=== PATIENT | male | born 1980 | race Caucasian/White ===

== ENCOUNTER 2019-11-11 17:14 | Emergency (ER) | payer OTHER ==
[2019-11-11] MEDS ORDERED: Proparacaine 0.5% Ophth Soln 15 ML Bottle EYEBOTH STA (17:33)
--- NOTE | 2019-11-11 17:56 | EDM.PDOC ---
ED HPI GENERAL MEDICAL PROBLEM - General Chief Complaint: Eye Problems Stated Complaint: OBJECT IN RIGHT EYE Time Seen by Provider: 11/11/19 17:33 Source of Information: Reports: Patient, RN Notes Reviewed History Limitations: Reports: No Limitations - History of Present Illness INITIAL COMMENTS - FREE TEXT/NARRATIVE: 39-year-old gentleman presents emergency department today with complaint of foreign body in his right eye he was metal grinding a cait bolt yesterday Right Eye Pain Score (Numeric/FACES): 9 - Related Data Allergies Allergy/AdvReac Type Severity Reaction Status Date / Time No Known Allergies Allergy Verified 11/11/19 17:24 Home Meds: Home Meds lisinopriL [Lisinopril] 20 mg PO DAILY 11/11/19 [History] Past Medical History Cardiovascular History: Reports: Hypertension Musculoskeletal History: Reports: Fracture - Past Surgical History Cardiovascular Surgical History: Reports: Other (See Below) Other Cardiovascular Surgeries/Procedures: "open heart surgery as a baby." Social & Family History - Tobacco Use Smoking Status *Q: Never Smoker - Caffeine Use Caffeine Use: Reports: None - Recreational Drug Use Recreational Drug Use: No ED ROS GENERAL - Review of Systems Review Of Systems: See Below Constitutional: Reports: No Symptoms HEENT: Reports: Eye Pain ED EXAM GENERAL W FULL EYE - Physical Exam Exam: See Below Exam Limited By: No Limitations Eye Exam: Right Eye: Normal Inspection (Foreign body present), Bilateral Eye: EOMI, PERRL Visual Acuity (R) 20/: 40 Visual Acuity (L) 20/: 25 With Correction: No Eyelids: Bilateral: Normal Appearance Conjunctiva & Sclera: Right: Foreign Body, Left: Normal Appearance Cornea Exam: Right: Corneal Ulcer, Left: Normal Appearance Extraocular Movements: Bilateral: Intact Pupils: Normal Accommodation Pupillary Size: Bilateral: 3 mm Pupillary Reaction: Bilateral: Brisk ED EYE w/ Add Procedure - Eye Procedure Eye FB Removal: Other (Dermal tool) Eye Irrigated w/ Saline (ccs): 100 Cyclogel 2 Drops Administered: Both Eyes Progress: Object was a removed with the small dermal tool eye was copiously flushed next fluorescein stain was done revealed a corneal ulcer with a rust ring, he is placed on antibiotics will follow-up with eye care provider tomorrow Course - Vital Signs Last Recorded V/S: Last Vital Signs Temp 97.4 F 11/11/19 17:27 Pulse 84 11/11/19 17:27 Resp 16 11/11/19 17:27 BP 168/89 H 11/11/19 17:27 Pulse Ox 99 11/11/19 17:27 - Orders/Labs/Meds Meds: Medications Discontinued Medications Generic Name Dose Route Start Last Admin Trade Name lEoy PRN Reason Stop Dose Admin Proparacaine HCl 1 ml 11/11/19 17:33 11/11/19 17:36 Proparacaine 0.5% Ophth Soln EYEBOTH 11/11/19 17:34 1 ml NOW STA Administration Departure - Departure Time of Disposition: 17:59 Disposition: Home, Self-Care 01 Condition: Fair Clinical Impression: Foreign body of right eye Qualifiers: Encounter type: initial encounter Qualified Code(s): T15.91XA - Foreign body on external eye, part unspecified, right eye, initial encounter Corneal ulcer Qualifiers: Laterality: right Qualified Code(s): H16.001 - Unspecified corneal ulcer, right eye - Discharge Information Referrals: Lawson Prakash NP [Primary Care Provider] - Additional Instructions: Start your antibiotic drops today follow-up with your eye care provider tomorrow Sepsis Event Note - Evaluation Sepsis Screening Result: No Definite Risk - Focused Exam Vital Signs: Vital Signs Temp Pulse Resp BP Pulse Ox 11/11/19 17:27 97.4 F 84 16 168/89 H 99 Date Exam was Performed: 11/11/19 Time Exam was Performed: 17:51 - Assessment/Plan Plan: Assessment Acuity = acute Site and laterality = foreign body right eye with corneal ulcer Etiology = trauma grinding a cait bolt Manifestations = none Location of injury = Home Lab values = none Plan Prescription written for gentamicin ophthalmic drops he will contact the eye care provider in the morning for further follow-up This note was dictated using [employer] voice recognition software please call with any questions on syntax or grammar.
== END 2019-11-11 18:17 | disposition home or self-care (01) ==
LOC: JP.ED 17:14
DX: T15.91XA Foreign body on external eye, part unspecified, right eye, initial encounter (principal); I10 Essential (primary) hypertension; Z79.899 Other long term (current) drug therapy; H16.001 Unspecified corneal ulcer, right eye
CPT/HCPCS: 65205; 99283; A9270